=== PATIENT | female | born 1945 | race Caucasian/White ===

== ENCOUNTER → 2016-12-17 | Outpatient (CLI) | payer OTHER ==
[~2016-12-17] MED LIST: KEFLEX500 MG PO; SYNTHROID; SYNTHROID PO; VICODIN 5/1 TAB 5/50 PO; ZOCOR20 MG PO
--- NOTE | ~2016-12-17 | MY11 ---
[facility] A Service of [facility] RADIOLOGY TEXT RESULTS PATIENT: SHAWNEE THOMPSON LOCATION: [facility] : 49 UNIT #: [id number] AGE: [address]: MERLYN HIGUERA APRN SEX: F ORDER DR: [id number] [facility] [address] [place], [place] [address] [id number] O MR#: [id number] Acc #: [id number] NAME: SHAWNEE THOMPSON : 1945 SEX: F STUDY DATE/TIME: 12/17/2016 10:44 UNIT: [facility] ROOM: STUDY DESCRIPTION: MY Mammogram Screening Dig Lorenzo Attending Physician: Merlyn Santos M.D. Referring Physician: Merlyn Santos M.D. Ordering Physician: Merlyn Santos M.D. Primary Care Physician: Merlyn Santos M.D. MEDICAL IMAGING REPORT This report is preliminary unless electronic signature is present EXAM Bilateral digital screening mammogram with CAD INDICATION Routine screening. No current complaints. Family history of breast cancer in sister. COMPARISON 09/17/2015, 10/24/2011, 02/28/2010. FINDINGS MLO and CC digital views of each breast were obtained. The exam was reviewed with an FDA-approved CAD device. There are scattered fibroglandular densities present. There are no masses or abnormal calcifications. There has been no change. IMPRESSION No change. No evidence of malignancy. Patients over the age of 40 are entered into a reminder system with target due date for the next mammogram. A result letter will also be sent to the patient. BIRADS: 1 Negative Dictated by... Logan Casillas M.D. THIS IS AN ELECTRONICALLY VERIFIED REPORT Logan Casillas M.D. at 12/17/2016 2:07 PM LI/walker [facility] A Service of [facility] RADIOLOGY TEXT RESULTS PATIENT: SHAWNEE THOMPSON LOCATION: [facility] : 49 UNIT #: [id number] AGE: [address]: MERLYN HIGUERA APRN SEX: F ORDER DR: TD: 12/17/2016 13:18 JOB #: [id number] MEDICAL IMAGING REPORT COPY
== END | disposition home or self-care (01) ==
LOC: CWCC 10:01
DX: Z12.31 Encounter for screening mammogram for malignant neoplasm of breast (principal); Z80.3 Family history of malignant neoplasm of breast
CPT/HCPCS: G0202